=== PATIENT | male | born 1955 | race Caucasian/White ===

== ENCOUNTER 2017-01-15 05:11 | Day surgery (SDC) | payer MEDICARE, OTHER ==
[~2017-01-15] VITALS: Ht 182.9 cm; Wt 141.5 kg
[~2017-01-15 05:11] MED LIST: ALLEGRA-D1 TAB.SR1 PO; ASPIRIN EC81 M1 PO; BACTRIM DS TABL1 TAB PO; BAYER CHEWABLE81 MG PO; CALCI-CHEW1 TAB.CHEW PO; CELEXA40 MG PO; COUMADIN5 MG PO; COZAAR50 MG PO; DICLOFENAC SODI50 MG PO; ELIQUIS2.5 MG PO; FLAGYL500 MG PO; FLINTSTONE1 TAB.CHEW PO; GLUCOPHAGE1000 MG PO; GLUCOTROL 5 MG T5 MG PO; HCTZ25 MG PO; IMURAN50 MG PO; MORPHINE SULFAT30 MG PO; NEURONTIN 300300 MG PO; NORCO 10/325 TA1 TA1 PO; NORCO 7.5/325 T1 TA1 PO; NORVASC10 MG PO; ORAMORPH SR15 MG; OTEZLA PO; PERCOCET 10/3251 TA1; PERCOCET 10/3251 TA1 PO; PROZAC20 MG PO; TESTOSTERON200 MG/ML IM; TUMS500 MG PO; VENTOLIN HFA18 GM INH; VITAMIN D31000 UNIT PO; VITAMIN D5000 UNIT PO; VITAMIN E200 UNI1 PO; VITAMIN E200 UNI2 PO; ZANAFLEX4 MG PO
[2017-01-15 06:28] VITALS: BP 138/83; Ht 182.9 cm; Wt 141.5 kg
[2017-01-15 06:37] LABS: HEMATOCRIT 44.3 % (42.0-54.0); HEMOGLOBIN 14.5 g/dL (13.5-17.5); MCH 31.3 pg (26.0-34.0); MCHC 32.7 g/dL (31.0-37.0); MCV 95.7 fL (80.0-100.0); MEAN PLATELET VOLUME 9.5 fL (7.4-10.4); RBC 4.63 10x6/uL (4.20-6.10); RDW 13.6 % (11.5-14.5); WBC 3.8 10x3/uL (4.8-10.8)
[2017-01-15 06:46] LABS: ANION GAP 7.7 mmol/L (8-16); CALCIUM 8.9 mg/dL (8.5-10.1); CARBON DIOXIDE 32.1 mmol/L (21.0-32.0); CREATININE - SERUM 1.2 mg/dL (0.6-1.3); POTASSIUM - SERUM 3.8 mmol/L (3.5-5.1)
[2017-01-15] MEDS ORDERED: DILAUDID4 MG PO (10:03)
--- NOTE | 2017-01-15 11:04 | NUR ---
IV DC WITH CATHER TIP INTACT
--- NOTE | 2017-01-16 11:39 | OP ---
PATIENT NAME: VENANCIO MARTÍNEZ MEDICAL RECORD: [id number] :53 LOCATION:D.OPS ADMISSION DATE: SURGEON: STEPHANIE BANEGAS MD DATE OF OPERATION: 01/15/2017 Orthopedic Surgery Operative Note PREOPERATIVE DIAGNOSES: Painful Jose Manuel deformity of the right foot, also painful plantar osteophyte. POSTOPERATIVE DIAGNOSES: Painful Jose Manuel deformity of the right foot, also painful plantar osteophyte. PROCEDURES: 1. Jose Manuel resection with Achilles tendon repair. 2. Resection of plantar bone spur with plantar fascial release. SURGEON: Stephanie Banegas MD. ANESTHESIA: General. INTRAOPERATIVE COMPLICATIONS: None. SUMMARY OF PATHOLOGIC FINDINGS: The patient had a near full thickness Achilles tendon tear with severe bursitis in the retrocalcaneal space with a part of a fibrotic tendinotic piece still attached to the retrocalcaneal area, but not attached to the Achilles tendon. Furthermore, the patient had a large plantar bone spur that was resected along with plantar fascia release. OPERATIVE SUMMARY IN DETAIL: After obtaining the appropriate preoperative orthopedic surgery consent as well as anesthetic consultation, evaluation and clearance, the patient was brought to the operating room and placed on the operating table in supine position. After general laryngeal mask was administered, tourniquet was placed about the proximal aspect of the right lower extremity. The patient was flipped from a prone position. All pressure points were well padded. Tourniquet was placed about the proximal aspect of the right lower extremity. The right lower extremity was then prepped and draped in routine sterile fashion. The leg was elevated and exsanguinated, tourniquet inflated to 350 mmHg. Routine midline incision was taken down, the residual Achilles tendon was released showing the pathology both of the tendon as well as the retroperitoneal space. Jose Manuel material was dissected out of the Achilles tendon. A combination of a TPS saw blade as well as a rongeur utilized to debride, denude and decorticate the retrocalcaneal area and take down all bone spurs. At this point, the Achilles tendon was reattached using the Arthrex Achilles SpeedBridge kit. This resulted in excellent anatomic fixation. This wound was very gently closed with 2-0 Vicryl followed by 4-0 Prolene in running fashion and then an incision was made on the medial side of the foot along the plantar and medial skin junction. Dissection was carried down to the level of the plantar fascia as well as the plantar exostosis. This was excised with a combination of a sagittal saw and an osteotome. Having completed this, the wound was copiously irrigated and then closed with 2-0 Vicryl and 4-0 Prolene in running fashion. Sterile dressings were applied. Tourniquet was deflated and a posterior L&U splint was applied. The patient was awakened and taken to recovery in stable condition. All final needle and sponge counts were correct. OPERATIVE REPORT [id number] VENANCIO MARTÍNEZ TRANSINT:[id number] Voice Confirmation ID: [id number] DOCUMENT ID: [id number] BASSAM MERAZ, STEPHANIE BLANCA at 1139 CC: [id number] DICTATION DATE: 01/15/17 1331 INDUSTRIAL REAL ESTATE AGENT: 01/15/17 2332 [facility] 01/15/17 [facility] [address] [place] [address]
== END 2017-01-15 11:30 | disposition home or self-care (01) ==
LOC: D.OPS 05:11 → D.PAN 08:00 → D.OPS 08:30
PROVIDERS: Anesthesiology
DX: M89.8X7 Other specified disorders of bone, ankle and foot (principal); Z01.812 Encounter for preprocedural laboratory examination

== ENCOUNTER → 2017-11-27 07:52 | Outpatient (CLI) | payer MEDICARE, OTHER ==
[2017-01-15 06:28] VITALS: BMI 42.4
[~2017-11-27 07:52] MED LIST changes: +DILAUDID4 MG PO
[2017-11-27 08:32] LABS: BASOPHILS 0.3 % (0-2); EOSINOPHILS 2.9 % (0-7); HEMATOCRIT 49.1 % (42.0-54.0); HEMOGLOBIN 16.5 g/dL (13.5-17.5); IMMATURE GRANULOCYTES 0.9 % (0-5); MCHC 33.6 g/dL (31.0-37.0); MCV 92.3 fL (80.0-100.0); MEAN PLATELET VOLUME 9.9 fL (7.4-10.4); NEUTROPHILS 53.9 % (40-80); PLATELET COUNT 241 10x3/uL (130-400); RBC 5.32 10x6/uL (4.20-6.10); RDW 12.7 % (11.5-14.5); WBC 7.6 10x3/uL (4.8-10.8)
[2017-11-27 09:35] LABS: ERYTHROCYTE SEDIMENTATION RATE 2 mm/hr (0-20)
== END | disposition home or self-care (01) ==
LOC: D.NM 07:52
PROVIDERS: Orthopaedic Surgery
DX: T84.84XA Pain due to internal orthopedic prosthetic devices, implants and grafts, initial encounter (principal)

== ENCOUNTER → 2018-04-28 17:14 | Outpatient (CLI) | payer MEDICARE, OTHER ==
[2017-01-15 06:28] VITALS: BMI 42.4
[~2018-04-28 17:14] MED LIST changes: +CETIRIZINE HCL5 MG PO; +FEXOFENADINE H180 MG PO; +MS CONTIN15 MG PO; +NORCO 10-325 TA1 TAB PO; -NORCO 7.5/325 T1 TA1 PO; +OMEPRAZOLE20 M1 PO; +OXYCODONE-APAP1 TAB PO; +Percocet-10 PO; +TALTZ IM; +TESTOSTERONE IM; +[UNRECOGNIZED DRUG - OTHER]; +[UNRECOGNIZED DRUG - OTHER] TD
== END | disposition home or self-care (01) ==
LOC: D.LABREF 17:14
DX: M17.11 Unilateral primary osteoarthritis, right knee (principal); Z11.8 Encounter for screening for other infectious and parasitic diseases

== ENCOUNTER 2018-05-26 10:00 | Inpatient (IN) | payer MEDICARE, OTHER ==
[~2018-05-26] VITALS: Ht 182.9 cm; Wt 140.5 kg
--- NOTE | ~2018-05-26 | OP ---
PATIENT NAME: VENANCIO MARTÍNEZ MEDICAL RECORD: [id number] :53 LOCATION:D.MS [id number] ADMISSION DATE:05/31/18 SURGEON: STEPHANIE BANEGAS MD DATE OF OPERATION: 05/31/2018 PREOPERATIVE DIAGNOSIS: Instability of the right knee, status post revision total knee arthroplasty. POSTOPERATIVE DIAGNOSIS: Instability of the right knee, status post revision total knee arthroplasty. PROCEDURE: Revision total knee arthroplasty (polyethylene component only). SURGEON: Stephanie Banegas MD ANESTHESIA: General. INTRAOPERATIVE COMPLICATIONS: None. SUMMARY OF PATHOLOGIC FINDINGS: Essentially, the patient had laxity in both flexion and extension. Unsure as to why the patient's knee got this loose; however, he had this revision done several years ago and recently presented with laxity in both flexion and extension. It is of note that the patient's femoral and tibial components were in excellent condition. OPERATIVE SUMMARY IN DETAIL: After obtaining the appropriate preoperative orthopedic surgery consent as well as anesthetic consultation, evaluation, and clearance, the patient was brought to the operative room and placed on the operating table in supine position. After general laryngeal mask airway was administered, tourniquet was placed on the proximal aspect of the right lower extremity. Right lower extremity was then prepped and draped in routine sterile fashion. The leg was elevated and exsanguinated, tourniquet was inflated to 350 mmHg. Midline incision was made over the previous midline incision, taken down for paramedian arthrotomy. Gentle eversion of the patella was then followed by subluxing the tibia anteriorly. The polyethylene was taken out along with the post. Trials were then undertaken and the 22-mm tibial trial implant rendered the patient's knee most stable in both planes. Having completed this, irrigation of the knee was then followed by reimplantation of the polyethylene post tibial component. This was then snapped into place. The knee was taken through range of motion and found to be stable in all planes. Again, the wound was irrigated and closed with #2 Ethibond, followed #1 Vicryl, 2-0 Vicryl, and skin renay. Sterile dressings were applied. The patient was awakened and taken to recovery room in stable condition. All final needle and sponge counts were correct. TRANSINT:[id number] Voice Confirmation ID: [id number] DOCUMENT ID: [id number] OPERATIVE REPORT [id number] VENANCIO MARTÍNEZ MD, STEPHANIE BLANCA at 0905 CC: [id number] DICTATION DATE: 06/04/18835 LOKIE DRIVER: 06/04/18 0856 [facility] [place] 06/02/18 [place] [id number] [place] [id number]
[~2018-05-26 10:00] MED LIST changes: -CETIRIZINE HCL5 MG PO; -FEXOFENADINE H180 MG PO; -MS CONTIN15 MG PO; -OMEPRAZOLE20 M1 PO; -OXYCODONE-APAP1 TAB PO; -Percocet-10 PO; -TALTZ IM; -TESTOSTERONE IM; -[UNRECOGNIZED DRUG - OTHER]; -[UNRECOGNIZED DRUG - OTHER] TD
[2018-05-26] MEDS ORDERED: CETIRIZINE HCL5 MG PO (11:29)
[2018-05-26] MEDS ORDERED: OMEPRAZOLE20 M1 PO (11:32)
[2018-05-26] MEDS ORDERED: FEXOFENADINE H180 MG PO (11:32)
[2018-05-26] MEDS ORDERED: [UNRECOGNIZED DRUG - OTHER] TD (11:34)
[2018-05-26] MEDS ORDERED: TALTZ IM (11:35)
[2018-05-26] MEDS ORDERED: [UNRECOGNIZED DRUG - OTHER] (11:36)
[2018-05-26 11:37] LABS: BASOPHILS 0.4 % (0-2); EOSINOPHILS 3.1 % (0-7); HEMATOCRIT 49.7 % (42.0-54.0); IMMATURE GRANULOCYTES 0.7 % (0-5); LYMPHOCYTES 32.3 % (15-50); MCH 31.5 pg (26.0-34.0); MCHC 34.2 g/dL (31.0-37.0); MCV 92.2 fL (80.0-100.0); MEAN PLATELET VOLUME 9.9 fL (7.4-10.4); MONOCYTES 7.9 % (2-11); NEUTROPHILS 55.6 % (40-80); PLATELET COUNT 282 10x3/uL (130-400); RBC 5.39 10x6/uL (4.20-6.10); RDW 13.9 % (11.5-14.5); WBC 7.4 10x3/uL (4.8-10.8)
[2018-05-26] MEDS ORDERED: TESTOSTERONE IM (11:39)
[2018-05-26 11:51] LABS: APPEARANCE CLEAR (CLEAR); BILIRUBIN NEGATIVE (NEGATIVE); CALC OSMOLALITY 258 mosm/kg (275-300); CARBON DIOXIDE 33.9 mmol/L (21.0-32.0); CHLORIDE - SERUM 95 mmol/L (98-107); COLOR YELLOW (YELLOW); GLUCOSE 150 mg/dL (74-106); GLUCOSE NEGATIVE (NEGATIVE); KETONE NEGATIVE (NEGATIVE); NITRITE NEGATIVE (NEGATIVE); POTASSIUM - SERUM 3.5 mmol/L (3.5-5.1); PROTEIN NEGATIVE (NEGATIVE); SODIUM 127 mmol/L (136-145); SPECIFIC GRAVITY 1.015 (1.005-1.020); UREA NITROGEN 15 mg/dL (7-18); UROBILINOGEN NORMAL (NORMAL); eGFR NON AFRICAN AMERICAN 80 mL/min (90-120)
[2018-05-26 11:59] LABS: APTT 28.8 SECONDS (22.8-39.4); INR 0.97 (0.85-1.17); PROTIME 12.5 SECONDS (11.6-15.0)
[2018-05-31] MEDS ORDERED: OXYCODONE-APAP1 TAB PO (09:16)
[2018-05-31 09:46] VITALS: BP 146/94; BMI 42.1
[2018-05-31 15:16] VITALS: BP 148/87
[2018-05-31 15:41] VITALS: BP 148/87; Ht 182.9 cm; Wt 140.5 kg
[2018-05-31 16:13] VITALS: BP 126/75
[2018-05-31 16:24] VITALS: BP 148/87
[2018-05-31 21:01] VITALS: BP 149/76
[2018-06-01 04:57] VITALS: BP 154/76
[2018-06-01 06:28] LABS: HEMATOCRIT 45.5 % (42.0-54.0); HEMOGLOBIN 15.2 g/dL (13.5-17.5); MCH 30.8 pg (26.0-34.0); MCHC 33.4 g/dL (31.0-37.0); MCV 92.1 fL (80.0-100.0); RBC 4.94 10x6/uL (4.20-6.10); RDW 13.8 % (11.5-14.5); WBC 8.3 10x3/uL (4.8-10.8)
[2018-06-01 08:05] VITALS: BP 139/86
[2018-06-01 13:21] VITALS: BP 179/91
[2018-06-01 15:53] VITALS: BP 142/54
[2018-06-01 21:10] VITALS: BP 151/92
[2018-06-02 05:00] VITALS: BP 107/67
[2018-06-02 05:09] LABS: HEMATOCRIT 41.9 % (42.0-54.0); HEMOGLOBIN 13.9 g/dL (13.5-17.5); MCH 30.6 pg (26.0-34.0); MCHC 33.2 g/dL (31.0-37.0); MCV 92.3 fL (80.0-100.0); MEAN PLATELET VOLUME 9.8 fL (7.4-10.4); RBC 4.54 10x6/uL (4.20-6.10); RDW 13.9 % (11.5-14.5); WBC 10.3 10x3/uL (4.8-10.8)
[2018-06-02 08:40] VITALS: BP 141/83
[2018-06-02] MEDS ORDERED: ELIQUIS2.5 MG PO (08:55)
[2018-06-02] MEDS ORDERED: Percocet-10 PO (08:55)
[2018-06-02] MEDS ORDERED: MS CONTIN15 MG PO (08:55)
[2018-06-02 11:40] VITALS: BP 152/89
== END 2018-06-02 13:20 | disposition home health service (06) | DRG 489 ==
LOC: D.MS 05-31 08:45 → D.SDCHOLD 05-31 08:45 → D.MS 05-31 15:06 → D.SDCHOLD 05-31 16:20 → D.MS 05-31 16:21
PROVIDERS: Orthopaedic Surgery
PROC: 0SUV09Z Supplement Right Knee Joint, Tibial Surface with Liner, Open Approach (ICD-10-PCS; 2018-05-31)
PROC: 0SPC09Z Removal of Liner from Right Knee Joint, Open Approach (ICD-10-PCS; principal; 2018-05-31 10:45)
DX: T84.89XA Other specified complication of internal orthopedic prosthetic devices, implants and grafts, initial encounter (principal); E11.9 Type 2 diabetes mellitus without complications; Z79.84 Long term (current) use of oral hypoglycemic drugs; I10 Essential (primary) hypertension; K75.9 Inflammatory liver disease, unspecified; Z87.891 Personal history of nicotine dependence

== ENCOUNTER 2018-07-02 08:10 | Day surgery (SDC) | payer MEDICARE, OTHER ==
[2018-07-02] VITALS (10 sets, daily range): BP systolic 110–161; BP diastolic 78–95; Ht 182.9 cm; Wt 141.8 kg
[~2018-07-02] VITALS: Ht 182.9 cm; Wt 141.8 kg
--- NOTE | ~2018-07-02 | MORECARE ---
CASE MANAGEMENT DISCHARGE SUMMARY PATIENT: VENANCIO MARTÍNEZ UNIT: [id number] ADM DATE: 07/02/18 AGE: 62 : 54 SEX: M ROOM/BED: D.2224 AUTHOR: CODIE SYLVESTER PHYSICIAN: REFERRING PHYSICIAN: STEPHANIE BANEGAS MD DATE OF SERVICE: 07/02/18 Discharge Plan Patient Name: VENANCIO MARTÍNEZ [facility] [facility] 1955 Planned Disposition: Anticipated Discharge Date: 07/03/18 Discharge Date: Expected LOS: 1 Initial Reviewer: [email or web address] Initial Review Date: 07/02/2018 Generated: 07/02/18 5:51 pm Comments DCP- Discharge Planning Updated by [email or web address]: Pauline Acuna on 07/02/18 3:[address] CM ATTEMPTED TO SET UP A [facility] HOME WOUND VAC ALL 3 NUMBERS TO [facility] WOULD NOT ANSWER [facility]ARDO LEVIN OR [facility]. SPOKE WITH DR BANEGAS HE WANTS A VAC VIA TO SEND THE PATIENT HOME AND WE WILL SET UP THE HOME WOUND VAC ON THURSDAY TO BE DELIVERED TO PATIENT'S HOME. KELBY WITH WOUND CARE CALLED [facility]S SHE IS GETTING ONE TO HAVE AT BEDSIDE FOR DR BANEGAS. CM WILL CONTINUE TO FOLLOW AND ASSIST WITH DC PLANNING Patient Name: VENANCIO MARTÍNEZ Page [phone] at 1651 All edits/amendments must be made on the electronic document DICTATION DATE: 07/02/181650 ANIMAL CARETAKER: DALE 07/02/181650 RPT#: [id number] DC DATE: STATUS: [facility] [address] [facility] [place] [address] END OF REPORT
--- NOTE | ~2018-07-02 | MORECARE ---
CASE MANAGEMENT DISCHARGE SUMMARY PATIENT: VENANCIO MARTÍNEZ UNIT: [id number] ADM DATE: 07/02/18 AGE: 62 : 54 SEX: M ROOM/BED: AUTHOR: HIGINIODOC PHYSICIAN: REFERRING PHYSICIAN: STEPHANIE BANEGAS MD DATE OF SERVICE: 07/05/18 Discharge Plan Patient Name: VENANCIO MARTÍNEZ Facility: [facility]:[place] : 1955 Planned Disposition: Anticipated Discharge Date: 07/03/18 Discharge Date: 07/03/2018 Expected LOS: 1 Initial Reviewer: [email or web address] Initial Review Date: 07/02/2018 Generated: 07/05/18 3:27 pm Comments DCP- Discharge Planning Updated by [id number]: Pauline Acuna on 07/05/18 1:[address] spoke with Lupe at [facility],. she will go see patient and updated her on the home vac. DCP- Discharge Planning Updated by [email or web address]: Pauline Acuna on 07/05/18 8:[address] FAXED HOME WOUND VAC ORDERS TO [facility] FOR WOUND VAC TO BE DELIVERED TO THE HOME DCP- Discharge Planning Updated by [email or web address]: Lenore Hale on 07/03/18 3:[address] TC TO [facility] IN [place] [phone]. SPOKE WITH SERVICE. ADVISED OF DISCHARGE TO HOME. TC TO [facility], WEEKEND RN DERMATOLOGY, AT [phone] ADVISED OF DISCHARGE. WILL FAX DISCHARGE SUMMARY ,DISCHARGE INSTRUCTIONS AND MED LIST TO [phone]. DCP- Discharge Planning Updated by [email or web address]: Gloria Arechiga on 07/02/18 4:[address] Patient Name: VENANCIO MARTÍNEZ Admission Status: Elective Accout number: [id number] Admission Date: 07-02-2018 : 1955 Admission Diagnosis: Attending: STEPHANIE BANEGAS Current LOS: 1 Anticipated DC Date: 07-03-2018 Planned Disposition: Primary Insurance: MEDICARE A & B Discharge Planning Comments: [facility] HAS [facility] ALREADY FOR PT AND WOUND CARE. [facility] ONLY DIFFERENCE WILL BE HE WILL HAVE THE WOUND VAC. [facility] IN [facility] PHONE NUMBER [phone], CALL THEM WHEN PATIENT DC'D. CM TO CALL LUPE ON HER PHONE AT [phone], SHE IS THE RN DERMATOLOGY FOR [facility] THIS WEEKEND. NO DOCUMENTS IN THE COMPUTER YET, WILL NEED TO FAX DOCUMENTS TO [facility] WHEN WE GET THEM. Plastic Molding Operator: Gloria Arechiga DCP- Discharge Planning Updated by [email or web address]: Pauline Acuna on 07/02/18 3:[address] CM ATTEMPTED TO SET UP A [facility] HOME WOUND VAC ALL 3 NUMBERS TO [facility] WOULD NOT ANSWER EVERARDO LEVIN OR [facility]. SPOKE WITH DR BANEGAS HE WANTS A VAC VIA TO SEND THE PATIENT HOME AND WE WILL SET UP THE HOME WOUND VAC ON THURSDAY TO BE DELIVERED TO PATIENT'S HOME. KELBY WITH WOUND CARE CALLED ANS SHE IS GETTING ONE TO HAVE AT BEDSIDE FOR DR BANEGAS. CM WILL CONTINUE TO FOLLOW AND ASSIST WITH DC PLANNING Last DP export: 07/05/18 8:16 Patient Name: VENANCIO MARTÍNEZ Page 11288 at 1427 All edits/amendments must be made on the electronic document DICTATION DATE: 07/05/181426 MANAGER STERILE PROCESSING: DALE 07/05/181426 RPT#: [id number] DC DATE:07/03/18 STATUS: [facility] [address] [place] [address] END OF REPORT
--- NOTE | ~2018-07-02 | MORECARE ---
CASE MANAGEMENT DISCHARGE SUMMARY PATIENT: VENANCIO MARTÍNEZ UNIT: [id number] ADM DATE: 07/02/18 AGE: 62 : 54 SEX: M ROOM/BED: AUTHOR: HIGINIO,DOC PHYSICIAN: REFERRING PHYSICIAN: STEPHANIE BANEGAS MD DATE OF SERVICE: 07/03/18 Discharge Plan Patient Name: VENANCIO MARTÍNEZ Facility: [facility]:[place] : 1955 Planned Disposition: Anticipated Discharge Date: 07/03/18 Discharge Date: 07/03/2018 Expected LOS: 1 Initial Reviewer: [email or web address] Initial Review Date: 07/02/2018 Generated: 07/03/18 5:38 pm Comments DCP- Discharge Planning Updated by [email or web address]: Lenore Hale on 07/03/18 3:[address] TC TO [facility] IN [place] [phone]. SPOKE WITH SERVICE. ADVISED OF DISCHARGE TO HOME. TC TO [facility], WEEKEND COPY MANAGER, AT [phone] ADVISED OF DISCHARGE. CM WILL FAX DISCHARGE SUMMARY ,DISCHARGE INSTRUCTIONS AND MED LIST TO [phone]. DCP- Discharge Planning Updated by [email or web address]: Gloria Arechiga on 07/02/18 4:[address] Patient Name: VENANCIO MARTÍNEZ Admission Status: Elective Accout number: [id number] Admission Date: 07-02-2018 : 1955 Admission Diagnosis: Attending: STEPHANIE BANEGAS Current LOS: 1 Anticipated DC Date: 07-03-2018 Planned Disposition: Primary Insurance: MEDICARE A & B Discharge Planning Comments: [facility] HAS [facility] ALREADY FOR PT AND WOUND CARE. [facility] ONLY DIFFERENCE WILL BE HE WILL HAVE THE WOUND VAC. [facility] IN [facility] PHONE NUMBER [phone], CALL THEM WHEN PATIENT DC'D. CM TO CALL [facility] ON HER PHONE AT [phone], SHE IS THE COPY MANAGER FOR [facility] THIS WEEKEND. NO DOCUMENTS IN THE COMPUTER YET, WILL NEED TO FAX DOCUMENTS TO [facility] WHEN WE GET THEM. Landscape Nurseryman: Gloria Arechiga DCP- Discharge Planning Updated by [email or web address]: Pauline Acuna on 07/02/18 3:[address] CM ATTEMPTED TO SET UP A I HOME WOUND VAC ALL 3 NUMBERS TO [facility] WOULD NOT ANSWER [facility]ER[facility] LEVIN OR [facility]. SPOKE WITH DR BANEGAS HE WANTS A VAC VIA TO SEND THE PATIENT HOME AND WE WILL SET UP THE HOME WOUND VAC ON THURSDAY TO BE DELIVERED TO PATIENT'S HOME. KELBY WITH WOUND CARE CALLED [facility] SHE IS GETTING ONE TO HAVE AT BEDSIDE FOR DR BANEGAS. CM WILL CONTINUE TO FOLLOW AND ASSIST WITH DC PLANNING Last DP export: 07/02/18 4:09 Patient Name: VENANCIO MARTÍNEZ Page [phone] at 1638 All edits/amendments must be made on the electronic document DICTATION DATE: 07/03/181636 WINDOW/DISTRIBUTION CLERK: DALE 07/03/181636 RPT#: [id number] DC DATE:07/03/18 STATUS: [facility] [address] [place] [address] END OF REPORT
--- NOTE | ~2018-07-02 | MORECARE ---
CASE MANAGEMENT DISCHARGE SUMMARY PATIENT: VENANCIO MARTÍNEZ UNIT: [id number] ADM DATE: 07/02/18 AGE: 62 : 54 SEX: M ROOM/BED: AUTHOR: HIGINIODOC PHYSICIAN: REFERRING PHYSICIAN: STEPHANIE BANEGAS MD DATE OF SERVICE: 07/05/18 Discharge Plan Patient Name: VENANCIO MARTÍNEZ Facility: [facility]:[place] : 1955 Planned Disposition: Anticipated Discharge Date: 07/03/18 Discharge Date: 07/03/2018 Expected LOS: 1 Initial Reviewer: [email or web address] Initial Review Date: 07/02/2018 Generated: 07/05/18 10:16 am Comments DCP- Discharge Planning Updated by [email or web address]: Pauline Acuna on 07/05/18 8:[address] FAXED HOME WOUND VAC ORDERS TO [facility] FOR WOUND VAC TO BE DELIVERED TO THE HOME DCP- Discharge Planning Updated by [email or web address]: Lenore Hale on 07/03/18 3:[address] TC TO [facility] IN [place] [phone]. SPOKE WITH SERVICE. ADVISED OF DISCHARGE TO HOME. TC TO [facility], WEEKEND BLOOD TESTER [facility], AT [phone] ADVISED OF DISCHARGE. CM WILL FAX DISCHARGE SUMMARY ,DISCHARGE INSTRUCTIONS AND MED LIST TO [phone]. DCP- Discharge Planning Updated by [email or web address]: Gloria Arechiga on 07/02/18 4:[address] Patient Name: VENANCIO MARTÍNEZ Admission Status: Elective Accout number: [id number] Admission Date: 07-02-2018 : 1955 Admission Diagnosis: Attending: STEPHANIE BANEGAS Current LOS: 1 Anticipated DC Date: 07-03-2018 Planned Disposition: Primary Insurance: MEDICARE A & B Discharge Planning Comments: [facility] HAS [facility] ALREADY FOR PT AND WOUND CARE. [facility] ONLY DIFFERENCE WILL BE HE WILL HAVE THE WOUND VAC. [facility] IN [facility] PHONE NUMBER [phone], CALL THEM WHEN PATIENT DC'D. CM TO CALL [facility] ON HER PHONE AT [phone], SHE IS THE BLOOD TESTER [facility] FOR [facility] THIS WEEKEND. NO DOCUMENTS IN THE COMPUTER YET, WILL NEED TO FAX DOCUMENTS TO [facility] WHEN WE GET THEM. Rn Icu: Gloriarichi Arechiga DCP- Discharge Planning Updated by [email or web address]: Pauline Acuna on 07/02/18 3:[address] CM ATTEMPTED TO SET UP A [facility] HOME WOUND VAC ALL 3 NUMBERS TO [facility] WOULD NOT ANSWER EVERARDO LEVIN OR [facility]IR[facility]. SPOKE WITH DR BANEGAS HE WANTS A VAC VIA TO SEND THE PATIENT HOME AND WE WILL SET UP THE HOME WOUND VAC ON THURSDAY TO BE DELIVERED TO PATIENT'S HOME. KELBY WITH WOUND CARE CALLED ANS SHE IS GETTING ONE TO HAVE AT BEDSIDE FOR DR BANEGAS. CM WILL CONTINUE TO FOLLOW AND ASSIST WITH DC PLANNING External Providers External Provider: [facility] [employer] Next Contact Date: Service Request Date: Service Type: Resolution: Reviewer: Comments: Last DP export: 07/03/18 3:38 Patient Name: VENANCIO MARTÍNEZ Page [phone] at 0916 All edits/amendments must be made on the electronic document DICTATION DATE: 07/05/18915 OPTICAL GOODS DRILL OPERATOR: DALE 07/05/18915 RPT#: [id number] DC DATE:07/03/18 STATUS: [facility] [address] [place] [address] END OF REPORT
--- NOTE | ~2018-07-02 | OP ---
PATIENT NAME: VENANCIO MARTÍNEZ MEDICAL RECORD: [id number] :53 LOCATION:D.OPS ADMISSION DATE: SURGEON: STEPHANIE BANEGAS MD DATE OF OPERATION: 07/02/2018 PREOPERATIVE DIAGNOSIS: Infected surgical incision site with severe cellulitis of the right knee. POSTOPERATIVE DIAGNOSIS: Infected surgical incision site with severe cellulitis of the right knee. PROCEDURES: 1. Excisional debridement of skin, subcutaneous tissue, portions of fat, fascia. 2. Intraoperative knee aspirate. 3. Placement of suction wound VAC. SURGEON: Stephanie Banegas MD ANESTHESIA: General. INTRAOPERATIVE COMPLICATIONS: None. SUMMARY OF PATHOLOGIC FINDINGS: Fortunately for Mr. Martínez, I did not see any violation of the paramedian arthrotomy. Intraoperative synovial aspirate was sent for studies, however, it appeared to be normal and in fact it was found to Gram stain negative intraoperatively. I decided not to cut the paramedian arthrotomy open given these findings and the fact that his paramedian arthrotomy seemed to be sealed and the infection seemed to be refined to the prepatellar space. OPERATIVE SUMMARY IN DETAIL: After obtaining the appropriate preoperative orthopedic surgery consent as well as anesthetic consultation, evaluation and clearance, the patient was brought to the operating room and placed on the operating table in supine position. After adequate general laryngeal mask airway was administered, tourniquet was placed about the proximal aspect of the right lower extremity. Right lower extremity was then prepped and draped in routine sterile fashion. The tourniquet was not inflated. Attempts were made to just opening the small areas; however, after I found that this seemed to be undermining infectious-appearing hematoma, the entire incision was opened, and at this point, a combination of curettage and rongeurs were utilized to remove all nonviable-appearing tissue. Pulsatile lavage irrigation was then followed by drying of the tissue; however, prior to this, an 18-gauge needle was placed intraarticularly and approximately 90 cc of clear appearing synovial fluid were sent to the lab. Again note, this was done prior to any manipulation of the soft tissues anteriorly. Having completed the above, wound VAC was then placed with good seal set at 125 continuous medium suction. The patient was then awakened and taken to the recovery room in stable condition. All final needle and sponge counts were correct. TRANSINT:[id number] Voice Confirmation ID: [id number] DOCUMENT ID: [id number] OPERATIVE REPORT [id number] VENANCIO MARTÍNEZ MD, STEPHANIE BLANCA at 0759 CC: [id number] DICTATION DATE: 07/03/18 1038 BREAD PAN GREASER: 07/03/18 1342 [facility] SD[facility] 07/03/18 [place] [address] [place] [id number]
--- NOTE | ~2018-07-02 | MORECARE ---
CASE MANAGEMENT DISCHARGE SUMMARY PATIENT: VENANCIO MARTÍNEZ UNIT: [id number] ADM DATE: 07/02/18 AGE: 62 : 53 SEX: M ROOM/BED: AUTHOR: HIGINIODOC PHYSICIAN: REFERRING PHYSICIAN: STEPHNAIE BANEGAS MD DATE OF SERVICE: 07/12/18 Discharge Plan Patient Name: VENANCIO MARTÍNEZ Facility: [facility]:[place] : 1955 Planned Disposition: Anticipated Discharge Date: 07/03/18 Discharge Date: 07/03/2018 Expected LOS: 1 Initial Reviewer: [email or web address] Initial Review Date: 07/02/2018 Generated: 07/12/18 5:46 pm Comments DCP- Discharge Planning Updated by [email or web address]: Pauline Acuna on 07/05/18 1:[address] spoke with Lupe at [facility],. she will go see patient and updated her on the home vac. DCP- Discharge Planning Updated by [email or web address]: Pauline Acuna on 07/05/18 8:[address] FAXED HOME WOUND VAC ORDERS TO [facility] FOR WOUND VAC TO BE DELIVERED TO THE HOME DCP- Discharge Planning Updated by [email or web address]: Lenore Hale on 07/03/18 3:[address] TC TO [facility] IN [place] [phone]. SPOKE WITH SERVICE. ADVISED OF DISCHARGE TO HOME. TC TO [facility], WEEKEND AFFILIATE MANAGER, AT [phone] ADVISED OF DISCHARGE. WILL FAX DISCHARGE SUMMARY ,DISCHARGE INSTRUCTIONS AND MED LIST TO [phone]. DCP- Discharge Planning Updated by [email or web address]: Gloria Arechiga on 07/02/18 4:[address] Patient Name: VENANCIO MARTÍNEZ Admission Status: Elective Accout number: [id number] Admission Date: 07-02-2018 : 1955 Admission Diagnosis: Attending: STEPHANIE BANEGAS Current LOS: 1 Anticipated DC Date: 07-03-2018 Planned Disposition: Primary Insurance: MEDICARE A & B Discharge Planning Comments: [facility] HAS [facility] ALREADY FOR PT AND WOUND CARE. [facility] ONLY DIFFERENCE WILL BE HE WILL HAVE THE WOUND VAC. [facility] IN [facility] PHONE NUMBER [phone], CALL THEM WHEN PATIENT DC'D. CM TO CALL LUPE ON HER PHONE AT [phone], SHE IS THE AFFILIATE MANAGER FOR [facility] THIS WEEKEND. NO DOCUMENTS IN THE COMPUTER YET, WILL NEED TO FAX DOCUMENTS TO [facility] WHEN WE GET THEM. Legal Writing Professor: Gloria Arechiga DCP- Discharge Planning Updated by [id number]: Pauline Acuna on 07/02/18 3:[address] CM ATTEMPTED TO SET UP A [facility] HOME WOUND VAC ALL 3 NUMBERS TO [facility] WOULD NOT ANSWER EVERARDO LEVIN OR DESIRAE. SPOKE WITH DR BANEGAS HE WANTS A VAC VIA TO SEND THE PATIENT HOME AND WE WILL SET UP THE HOME WOUND VAC ON THURSDAY TO BE DELIVERED TO PATIENT'S HOME. KELBY WITH WOUND CARE CALLED ANS SHE IS GETTING ONE TO HAVE AT BEDSIDE FOR DR BANEGAS. CM WILL CONTINUE TO FOLLOW AND ASSIST WITH DC PLANNING Last DP export: 07/05/18 1:27 Patient Name: VENANCIO MARTÍNEZ Page [phone] at 1646 All edits/amendments must be made on the electronic document DICTATION DATE: 07/12/181644 ANHYDROUS AMMONIA PRODUCTION SUPERVISOR: DALE 07/12/181644 RPT#: [id number] DC DATE:07/03/18 STATUS: [facility] [address] [place] [address] END OF REPORT
--- NOTE | ~2018-07-02 | MORECARE ---
CASE MANAGEMENT DISCHARGE SUMMARY PATIENT: VENANCIO MARTÍNEZ UNIT: [id number] ADM DATE: 07/02/18 AGE: 62 : 53 SEX: M ROOM/BED: D.2224 AUTHOR: HIGINIO,DOC PHYSICIAN: REFERRING PHYSICIAN: STEPHANIE BANEGAS MD DATE OF SERVICE: 07/02/18 Discharge Plan Patient Name: VENANCIO MARTÍNEZ [facility] [facility] 1955 Planned Disposition: Anticipated Discharge Date: 07/03/18 Discharge Date: Expected LOS: 1 Initial Reviewer: [email or web address] Initial Review Date: 07/02/2018 Generated: 07/02/18 6:09 pm Comments DCP- Discharge Planning Updated by [email or web address]: Gloria Arechiga on 07/02/18 4:[address] Patient Name: VENANCIO MARTÍNEZ Admission Status: Elective Accout number: [id number] Admission Date: 07-02-2018 : 1955 Admission Diagnosis: Attending: STEPHANIE BANEGAS Current LOS: 1 Anticipated DC Date: 07-03-2018 Planned Disposition: Primary Insurance: MEDICARE A & B Discharge Planning Comments: [facility] HAS [facility] ALREADY FOR PT AND WOUND CARE. [facility] ONLY DIFFERENCE WILL BE HE WILL HAVE THE WOUND VAC. [facility] PHONE NUMBER [phone], CALL THEM WHEN PATIENT DC'D. CM TO CALL URIAHSusie ON HER PHONE AT [phone], SHE IS THE NURSING ASSOC FOR [facility] THIS WEEKEND. NO DOCUMENTS IN THE COMPUTER YET, WILL NEED TO FAX DOCUMENTS TO [facility] WHEN WE GET THEM. Benefit Authorizer: Gloria Arechiga DCP- Discharge Planning Updated by [email or web address]: Pauline Acuna on 07/02/18 3:[address] CM ATTEMPTED TO SET UP A [facility] HOME WOUND VAC ALL 3 NUMBERS TO [facility] WOULD NOT ANSWER EVERARDO LEVIN OR DESIRAE. SPOKE WITH DR BANEGAS HE WANTS A VAC VIA TO SEND THE PATIENT HOME AND WE WILL SET UP THE HOME WOUND VAC ON THURSDAY TO BE DELIVERED TO PATIENT'S HOME. KELBY WITH WOUND CARE CALLED [facility] SHE IS GETTING ONE TO HAVE AT BEDSIDE FOR DR BANEGAS. CM WILL CONTINUE TO FOLLOW AND ASSIST WITH DC PLANNING Last DP export: 07/02/18 3:51 Patient Name: VENANCIO MARTÍNEZ Page [id number] at 1709 All edits/amendments must be made on the electronic document DICTATION DATE: 07/02/181707 MANAGER MULTICULTURAL: DALE 07/02/181707 RPT#: [id number] DC DATE: STATUS: REG [facility] [address] [place] [address] END OF REPORT
[~2018-07-02 08:10] MED LIST changes: +CETIRIZINE HCL5 MG PO; +FEXOFENADINE H180 MG PO; +MS CONTIN15 MG PO; +OMEPRAZOLE20 M1 PO; +OXYCODONE-APAP1 TAB PO; +Percocet-10 PO; +SMZ/TMP DS TAB 800 PO; +TALTZ IM; +TESTOSTERONE IM; +ZYRTEC10 MG PO; +[UNRECOGNIZED DRUG - OTHER]; +[UNRECOGNIZED DRUG - OTHER] TD
[2018-07-02 08:25] LABS: HEMATOCRIT 43.3 % (42.0-54.0); HEMOGLOBIN 14.6 g/dL (13.5-17.5); MCH 30.7 pg (26.0-34.0); MCHC 33.7 g/dL (31.0-37.0); MEAN PLATELET VOLUME 9.3 fL (7.4-10.4); RBC 4.76 10x6/uL (4.20-6.10); RDW 13.5 % (11.5-14.5); WBC 7.4 10x3/uL (4.8-10.8)
[2018-07-02 08:33] LABS: ANION GAP 12.6 mmol/L (8-16); CARBON DIOXIDE 27.8 mmol/L (21.0-32.0); CREATININE - SERUM 1.2 mg/dL (0.6-1.3); POTASSIUM - SERUM 4.4 mmol/L (3.5-5.1)
[2018-07-02 08:41] LABS: APTT 28.9 SECONDS (22.8-39.4)
[2018-07-02 08:44] LABS: INR 0.97 (0.85-1.17); PROTIME 12.5 SECONDS (11.6-15.0)
[2018-07-02 14:00] LABS: PROTEIN - BODY FLUID 4.1 G/DL
[2018-07-02 14:26] LABS: EOS BF 0 %; MACROPHAGES BF 0 %; MESOTHELIALS BF 0 %; NEUT - BF 20 %
[2018-07-03 04:50] LABS: HEMOGLOBIN 13.6 g/dL (13.5-17.5); MCH 30.6 pg (26.0-34.0); MCHC 33.2 g/dL (31.0-37.0); MCV 92.3 fL (80.0-100.0); MEAN PLATELET VOLUME 9.6 fL (7.4-10.4); RBC 4.44 10x6/uL (4.20-6.10); RDW 13.5 % (11.5-14.5)
[2018-07-03 04:54] LABS: WBC 5.5 10x3/uL (4.8-10.8)
[2018-07-03 05:10] VITALS: BP 134/79
[2018-07-03 09:40] VITALS: BP 143/84
[2018-07-03] MEDS ORDERED: OXYCODONE-APAP1 TAB PO (09:57)
== END 2018-07-03 13:15 | disposition home or self-care (01) ==
LOC: D.OPS 08:10 → D.MS 08:10 → D.OPS 10:00 → D.MS 13:14 → D.OPS 07-03 13:15
PROVIDERS: Anesthesiology; Orthopaedic Surgery
DX: T81.41XA Infection following a procedure, superficial incisional surgical site, initial encounter (principal); L03.115 Cellulitis of right lower limb; Z01.812 Encounter for preprocedural laboratory examination

== ENCOUNTER → 2018-07-29 16:22 | Outpatient (CLI) | payer MEDICARE, OTHER ==
[2018-07-02 14:42] VITALS: BMI 42.4
[2018-07-29 16:50] LABS: BASOPHILS 0.4 % (0-2); EOSINOPHILS 2.6 % (0-7); HEMATOCRIT 46.9 % (42.0-54.0); HEMOGLOBIN 15.5 g/dL (13.5-17.5); IMMATURE GRANULOCYTES 0.4 % (0-5); LYMPHOCYTES 42.7 % (15-50); MCH 30.3 pg (26.0-34.0); MCV 91.8 fL (80.0-100.0); MONOCYTES 11.4 % (2-11); NEUTROPHILS 42.5 % (40-80); RBC 5.11 10x6/uL (4.20-6.10); RDW 13.7 % (11.5-14.5); WBC 5.4 10x3/uL (4.8-10.8)
[2018-07-29 16:55] LABS: PLATELET COUNT 342 10x3/uL (130-400)
[2018-07-29 17:21] LABS: ANION GAP 12.6 mmol/L (8-16); C-REACTIVE PROTEIN 0.7 mg/dL (0.0-0.9); CALCIUM 9.7 mg/dL (8.5-10.1); CARBON DIOXIDE 30.5 mmol/L (21.0-32.0); CREATININE - SERUM 1.1 mg/dL (0.6-1.3); POTASSIUM - SERUM 4.1 mmol/L (3.5-5.1)
[2018-07-29 17:53] LABS: ERYTHROCYTE SEDIMENTATION RATE 10 mm/hr (0-20)
== END | disposition home or self-care (01) ==
LOC: D.LABREF 16:22
PROVIDERS: Orthopaedic Surgery
DX: M25.561 Pain in right knee (principal); Z00.00 Encounter for general adult medical examination without abnormal findings; E11.9 Type 2 diabetes mellitus without complications; E29.1 Testicular hypofunction

== ENCOUNTER → 2019-02-01 14:07 | Outpatient (CLI) | payer MEDICARE, OTHER ==
[2018-07-02 14:42] VITALS: BMI 42.4
== END | disposition home or self-care (01) ==
LOC: D.US 14:00
PROVIDERS: ATTEND Surgery
DX: I87.2 Venous insufficiency (chronic) (peripheral) (principal)

== ENCOUNTER 2019-05-09 09:19 | Day surgery (SDC) | payer MEDICARE, OTHER ==
[~2019-05-09] VITALS: Ht 182.9 cm; Wt 147.4 kg
[~2019-05-09 09:19] MED LIST changes: +PENNSAID; -[UNRECOGNIZED DRUG - OTHER]
[2019-05-09 09:36] LABS: HEMATOCRIT 43.9 % (42.0-54.0); HEMOGLOBIN 15.3 g/dL (13.5-17.5); MCH 30.8 pg (26.0-34.0); MCHC 34.9 g/dL (31.0-37.0); MCV 88.3 fL (80.0-100.0); MEAN PLATELET VOLUME 9.8 fL (7.4-10.4); RBC 4.97 10x6/uL (4.20-6.10); RDW 14.5 % (11.5-14.5); WBC 5.3 10x3/uL (4.8-10.8)
[2019-05-09 09:51] LABS: ANION GAP 8.9 mmol/L (8-16); CALCIUM 9.4 mg/dL (8.5-10.1); CARBON DIOXIDE 32.9 mmol/L (21.0-32.0); CREATININE - SERUM 1.1 mg/dL (0.6-1.3); POTASSIUM - SERUM 3.8 mmol/L (3.5-5.1)
[2019-05-09] MEDS ORDERED: FLOMAX0.4 MG PO (11:06)
[2019-05-09 11:21] VITALS: BP 144/79; Ht 182.9 cm; Wt 147.4 kg
[2019-05-09] MEDS ORDERED: HYDROCODON-ACE1 EAC7 PO (15:29)
--- NOTE | 2019-05-09 18:01 | NUR ---
1720 IV REMOVED AND PRESSURE HELD 1735 PT VOIDED A LOT 1745 DRESSING REINFORCED X2 ON ABD SMALL AMT ON GOWN
== END 2019-05-09 17:45 | disposition home or self-care (01) ==
LOC: D.OPS 09:19 → D.PAN 11:00 → D.OPS 12:00
PROVIDERS: Anesthesiology; ATTEND Surgery
DX: E66.01 Morbid (severe) obesity due to excess calories (principal); R13.10 Dysphagia, unspecified; K21.9 Gastro-esophageal reflux disease without esophagitis; Z98.84 Bariatric surgery status; K42.0 Umbilical hernia with obstruction, without gangrene; Z01.812 Encounter for preprocedural laboratory examination

== ENCOUNTER → 2019-05-17 13:14 | Outpatient (CLI) | payer MEDICARE, OTHER ==
[~2019-05-17] VITALS: Ht 182.9 cm; Wt 147.4 kg
[~2019-05-17 13:14] MED LIST changes: +FLOMAX0.4 MG PO; +HYDROCODON-ACE1 EAC7 PO; +PAROXETINE HCL10 MG PO; +PIOGLITAZONE15 MG PO
[2019-05-17 15:17] VITALS: Ht 182.9 cm; Wt 147.4 kg
== END | disposition home or self-care (01) ==
LOC: D.FANS 13:00
PROVIDERS: ATTEND Surgery
DX: E66.01 Morbid (severe) obesity due to excess calories (principal); E11.9 Type 2 diabetes mellitus without complications

== ENCOUNTER 2019-05-27 06:47 | Day surgery (SDC) | payer MEDICARE, OTHER ==
[~2019-05-27] VITALS: Ht 182.9 cm; Wt 145.1 kg
[~2019-05-27 06:47] MED LIST changes: -PAROXETINE HCL10 MG PO; -PIOGLITAZONE15 MG PO
[2019-05-27 07:13] LABS: HEMATOCRIT 41.9 % (42.0-54.0); HEMOGLOBIN 14.1 g/dL (13.5-17.5); MCH 29.6 pg (26.0-34.0); MCHC 33.7 g/dL (31.0-37.0); MCV 87.8 fL (80.0-100.0); MEAN PLATELET VOLUME 9.5 fL (7.4-10.4); RBC 4.77 10x6/uL (4.20-6.10); RDW 13.7 % (11.5-14.5); WBC 5.5 10x3/uL (4.8-10.8)
[2019-05-27 07:14] LABS: CALC OSMOLALITY 279 mosm/kg (275-300); CARBON DIOXIDE 34.1 mmol/L (21.0-32.0); CHLORIDE - SERUM 100 mmol/L (98-107); GLUCOSE 181 mg/dL (74-106); POTASSIUM - SERUM 3.5 mmol/L (3.5-5.1); SODIUM 137 mmol/L (136-145); UREA NITROGEN 16 mg/dL (7-18); eGFR NON AFRICAN AMERICAN 80 mL/min (90-120)
[2019-05-27] MEDS ORDERED: PIOGLITAZONE15 MG PO (08:01)
[2019-05-27] MEDS ORDERED: PAROXETINE HCL10 MG PO (08:03)
[2019-05-27 08:10] VITALS: BP 149/88; Ht 182.9 cm; Wt 145.1 kg
--- NOTE | 2019-05-27 13:21 | NUR ---
PATIENT ARRIVED VIA GURNEY, PATIENT ALERT AND ORIENTEDX4. MV
--- NOTE | 2019-05-27 13:24 | NUR ---
PATIENT HAS A FULL LIQUID TRAY AND IS TOLERATING IT WITH NO N/V. MV
--- NOTE | 2019-05-27 14:25 | NUR ---
PATIENT DOES NOT WANT THE PRESCRIPTION FOR NORCO 5. THIS WILL BE SHREDDED. PATIENT IS ON A PAIN MANAGMENT CONTRACT. MV
== END 2019-05-27 15:00 | disposition home or self-care (01) ==
LOC: D.OPS 06:47
PROVIDERS: Anesthesiology; ATTEND Surgery
DX: I87.2 Venous insufficiency (chronic) (peripheral) (principal); I83.11 Varicose veins of right lower extremity with inflammation; I83.12 Varicose veins of left lower extremity with inflammation

== ENCOUNTER 2019-08-03 05:26 | Day surgery (SDC) | payer MEDICARE, OTHER ==
[~2019-08-03] VITALS: Ht 182.9 cm; Wt 145.5 kg
[~2019-08-03 05:26] MED LIST changes: +PAROXETINE HCL10 MG PO; +PIOGLITAZONE15 MG PO
[2019-08-03 05:49] LABS: HEMATOCRIT 43.2 % (42.0-54.0); HEMOGLOBIN 13.8 g/dL (13.5-17.5); MCH 29.2 pg (26.0-34.0); MCHC 31.9 g/dL (31.0-37.0); MCV 91.3 fL (80.0-100.0); MEAN PLATELET VOLUME 9.5 fL (7.4-10.4); RBC 4.73 10x6/uL (4.20-6.10); RDW 13.2 % (11.5-14.5); WBC 5.3 10x3/uL (4.8-10.8)
[2019-08-03 06:02] LABS: ANION GAP 8.9 mmol/L (8-16); CALCIUM 8.8 mg/dL (8.5-10.1); CREATININE - SERUM 1.1 mg/dL (0.6-1.3); POTASSIUM - SERUM 3.9 mmol/L (3.5-5.1)
[2019-08-03] MEDS ORDERED: TUMERIC CURCUMIN (07:23)
[2019-08-03 07:32] VITALS: BP 127/80; Ht 182.9 cm; Wt 145.5 kg
== END 2019-08-03 09:00 | disposition home or self-care (01) ==
LOC: D.OPS 05:26
PROVIDERS: Anesthesiology; ATTEND Surgery
DX: E66.01 Morbid (severe) obesity due to excess calories (principal); Z68.41 Body mass index [BMI] 40.0-44.9, adult; K21.9 Gastro-esophageal reflux disease without esophagitis; E11.9 Type 2 diabetes mellitus without complications; I10 Essential (primary) hypertension; J45.909 Unspecified asthma, uncomplicated; I87.2 Venous insufficiency (chronic) (peripheral); G47.33 Obstructive sleep apnea (adult) (pediatric); M15.3 Secondary multiple arthritis; R13.10 Dysphagia, unspecified; Z98.84 Bariatric surgery status; Z96.651 Presence of right artificial knee joint; M25.561 Pain in right knee; S81.801D Unspecified open wound, right lower leg, subsequent encounter

== ENCOUNTER → 2019-08-04 08:28 | Outpatient (CLI) | payer MEDICARE, OTHER ==
[2019-08-03 07:32] VITALS: BMI 43.5
[~2019-08-04 08:28] MED LIST changes: +TUMERIC CURCUMIN
== END | disposition home or self-care (01) ==
LOC: D.OPS 08:28 → D.RAD 10:30
PROVIDERS: ATTEND Surgery
DX: E66.01 Morbid (severe) obesity due to excess calories (principal)

== ENCOUNTER → 2019-08-18 08:41 | Outpatient (CLI) | payer MEDICARE, OTHER ==
[2019-08-03 07:32] VITALS: BMI 43.5
== END | disposition home or self-care (01) ==
LOC: D.OPS 07-26 09:30 → D.RAD 07-26 10:30 → D.OPS 08-04 09:30 → D.ECHO 08:41 → D.OPS 09:00
PROVIDERS: ATTEND Internal Medicine Pulmonary Disease
DX: J45.909 Unspecified asthma, uncomplicated (principal); R06.09 Other forms of dyspnea

== ENCOUNTER 2019-08-29 05:43 | Day surgery (SDC) | payer MEDICARE, OTHER ==
[~2019-08-29] VITALS: Ht 182.9 cm; Wt 145.5 kg
[2019-08-29 06:02] LABS: HEMATOCRIT 44.7 % (42.0-54.0); HEMOGLOBIN 14.4 g/dL (13.5-17.5); MCHC 32.2 g/dL (31.0-37.0); MCV 90.1 fL (80.0-100.0); MEAN PLATELET VOLUME 9.4 fL (7.4-10.4); RBC 4.96 10x6/uL (4.20-6.10); RDW 14.3 % (11.5-14.5); WBC 5.4 10x3/uL (4.8-10.8)
[2019-08-29 06:44] LABS: CALCIUM 9.1 mg/dL (8.5-10.1); CARBON DIOXIDE 33.1 mmol/L (21.0-32.0); CREATININE - SERUM 1.1 mg/dL (0.6-1.3); POTASSIUM - SERUM 4.1 mmol/L (3.5-5.1)
[2019-08-29] MEDS ORDERED: NORVASC10 MG PO (08:15)
[2019-08-29] MEDS ORDERED: AMOXICILLIN500 M1 PO (08:16)
[2019-08-29 08:27] VITALS: BP 141/84; Ht 182.9 cm; Wt 145.5 kg
[2019-08-29] MEDS ORDERED: DIFLUCAN100 MG PO (10:13)
--- NOTE | 2019-08-29 11:54 | NUR ---
1145 IV REMOVED AND INSTRUCTIONS GIVEN. BRACE ON KNEE AND DRESSING CDI.
--- NOTE | 2019-08-31 10:08 | OP ---
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 PROCEDURES: 1. Excision of chronic nonhealing wound to include skin, subcutaneous tissue, portions of fascia with extensive excisional debridement. 2. Application of allograft skin graft - Restrata; wound dimensions 10 x 3 x 0.5 cm. 3. Application of PRP. SURGEON: Stephanie Banegas MD ANESTHESIA: General with laryngeal mask airway. INTRAOPERATIVE COMPLICATIONS: None. SUMMARY OF PATHOLOGIC FINDINGS: Consistent with preoperative diagnosis, the patient had a long chronic nonhealing skin wound that had very roughened edges. Cultures have been negative to date. Today, the skin was sent for both pathology as well as tissue culture to include AFB and fungus. OPERATIVE SUMMARY IN DETAIL: After obtaining the appropriate preoperative orthopedic surgery consent as well as anesthetic consultation, evaluation and brought to the operating room and placed in supine position. After adequate general laryngeal mask airway was administered, timeout was taken and agreed upon by all. The tourniquet was taken and placed about the proximal aspect of the right lower extremity. Right lower extremity was then prepped and draped in routine sterile fashion. The leg was elevated and exsanguinated. Tourniquet was inflated to 350 mmHg. Wide bloc excision was taken around the skin margins that were excised in the subcutaneous and subcutaneous layer half portions of which were sent for tissue culture as described above, portions of which were sent for pathology as described above. Combination of scalpel, rongeur, and curettage were utilized to clean all nonviable-appearing tissue. This was then copiously irrigated and scraped again. Having completed this, a portion of the PRP was injected in and around the wound and then the wound bed itself. Restrata 5 x 5 was meshed and soaked in PRP for approximately 10 minutes. This was then cut in half and applied to the wound with renay holding around it. Residual PRP that was left was placed onto the wound bed again, this was then covered with nonadherent adaptive, followed by pressure dressing 4 x 4s and an Duy bandage. Tourniquet was deflated. The patient was awakened and taken to the recovery room in stable condition. All final needle and sponge counts were correct. OPERATIVE REPORT [id number] VENANCIO MARTÍNEZ TRANSINT:[id number] Voice Confirmation ID: [id number] DOCUMENT ID: [id number] STEPHANIE BANEGAS MD at 1008 CC: [id number] DICTATION DATE: 08/29/19 1018 AGRICULTURE WORKER: 08/29/192028 [facility] 08/29/19 [address] [place] [address]
[2019-09-11 11:08] LABS: FUNGAL - ASP FLAVUS Negative (Neg:<1:1); FUNGAL - ASP NIGER Negative (Neg:<1:1); FUNGAL - ASPER FUMIGATUS Negative (Neg:<1:1)
[2019-09-12 09:08] LABS: ALPHA FETOPROTEIN -(TUMOR MRK) 2.9 ng/mL (0.0-8.3)
== END 2019-08-29 11:56 | disposition home or self-care (01) ==
LOC: D.OPS 05:43 → D.PAN 08:15 → D.OPS 11:56
PROVIDERS: Anesthesiology; ATTEND Orthopaedic Surgery
DX: S81.801D Unspecified open wound, right lower leg, subsequent encounter (principal); E11.9 Type 2 diabetes mellitus without complications; I10 Essential (primary) hypertension; J45.909 Unspecified asthma, uncomplicated; E66.01 Morbid (severe) obesity due to excess calories; Z68.41 Body mass index [BMI] 40.0-44.9, adult; Z96.651 Presence of right artificial knee joint
CPT/HCPCS: 11043; G0460

== ENCOUNTER 2019-09-06 11:05 | Inpatient (IN) | payer MEDICARE, OTHER ==
[~2019-09-06] VITALS: Ht 182.9 cm; Wt 148.2 kg
[~2019-09-06 11:05] MED LIST changes: +AMOXICILLIN500 M1 PO; +DIFLUCAN100 MG PO
[2019-09-09 12:36] LABS: ANION GAP 9.9 mmol/L (8-16); CALCIUM 9.3 mg/dL (8.5-10.1); CARBON DIOXIDE 33.3 mmol/L (21.0-32.0); CREATININE - SERUM 1.1 mg/dL (0.6-1.3); POTASSIUM - SERUM 4.2 mmol/L (3.5-5.1)
[2019-09-09 12:38] LABS: HEMATOCRIT 41.1 % (42.0-54.0); HEMOGLOBIN 13.4 g/dL (13.5-17.5); MCHC 32.6 g/dL (31.0-37.0); MEAN PLATELET VOLUME 9.4 fL (7.4-10.4); RBC 4.62 10x6/uL (4.20-6.10); RDW 14.1 % (11.5-14.5)
[2019-09-12] VITALS (12 sets, daily range): BP systolic 120–147; BP diastolic 64–87; Ht 182.9 cm; Wt 148.2 kg
--- NOTE | 2019-09-12 12:23 | NUR ---
PATIENT ADMITTED TO ROOM 2231. ADMISSION COMPLETE. EDUCATION PROVIDED ON LIQUID INTAKE TO ONLY HAVE 30ML EVERY 30 MINUTES, NO STRAWS, AND NO CARBONATION. MED CUP AND CUP OF WATER IN ROOM. AND PATIENT VERBALIZED UNDERSTANDING. AUTOMATION CONTROLS ENGINEER SET UP AND EDUCATION PROVIDED. PATIENT AND DENY NEEDS. BED ALARM ON. CALL RODRIGUEZ AND PERSONAL ITEMS IN REACH. WILL CONTINUE TO MONITOR.
--- NOTE | 2019-09-12 14:04 | NUR ---
PATIENT'S VITALS REMAIN STABLE. FOLLOWING PROTOCOL OF 3OCC Q 30MIN. WILL CONTINUE TO MONITOR.
--- NOTE | 2019-09-12 16:19 | NUR ---
POST OP VITALS REMAIN STABLE. 3OML LIQUID GIVEN. DENIES FURTHER REQUESTS. WILL CONTINUE TO MONITOR.
--- NOTE | 2019-09-12 19:27 | NUR ---
IN BED WITH FAMILY AT BEDSIDE. TELEVISION ON, ABLE TO VOICE ALL NEEDS. DENIES PAIN AT THIS TIME. IV TO RIGHT HAND INFUSING VIA ORDERS. FINANCIAL PLANNING ADVISER IS ACTIVE AND EFFECTIVE. NO S/S OF ANY ACUTE DISTRESS. WILL NOTE ANY CHANGE.
[2019-09-13 00:30] VITALS: BP 131/72
--- NOTE | 2019-09-13 01:51 | NUR ---
I have reviewed this patient and I concur with the Shift Assessment completed by the Licensed Practical Nurse today this shift.
[2019-09-13 05:25] VITALS: BP 137/77
[2019-09-13 05:32] LABS: BASOPHILS 0.1 % (0-2); EOSINOPHILS 0.1 % (0-7); HEMATOCRIT 43.6 % (42.0-54.0); HEMOGLOBIN 14.2 g/dL (13.5-17.5); IMMATURE GRANULOCYTES 0.6 % (0-5); LYMPHOCYTES 14.2 % (15-50); MCH 29.3 pg (26.0-34.0); MCHC 32.6 g/dL (31.0-37.0); MCV 89.9 fL (80.0-100.0); MEAN PLATELET VOLUME 9.5 fL (7.4-10.4); MONOCYTES 7.4 % (2-11); NEUTROPHILS 77.6 % (40-80); RBC 4.85 10x6/uL (4.20-6.10); RDW 14.5 % (11.5-14.5); WBC 10.2 10x3/uL (4.8-10.8)
[2019-09-13 05:35] LABS: ALBUMIN 3.3 g/dL (3.4-5.0); ANION GAP 13.4 mmol/L (8-16); BILIRUBIN - TOTAL 0.64 mg/dL (0.2-1.3); CALCIUM 8.8 mg/dL (8.5-10.1); CARBON DIOXIDE 27.8 mmol/L (21.0-32.0); CREATININE - SERUM 1.1 mg/dL (0.6-1.3); POTASSIUM - SERUM 4.2 mmol/L (3.5-5.1); PROTEIN - SERUM 7.5 g/dL (6.4-8.2)
[2019-09-13 06:52] LABS: PLATELET COUNT 366 10x3/uL (130-400)
--- NOTE | 2019-09-13 07:52 | NUR ---
ALERT AND ORIENTED. LUNGS CLEAR BILATERALLY. HEART SOUNDS S1 AND S2 HEARD IN ALL [place]. BOWEL SOUNDS ACTIVE X 4. LAP SITES X 5 C/D/I. SKIN OTHERWISE INTACT WITHOUT REDNESS. IV TO RIGHT HAND PATENT WITHOUT REDNESS. BED LOW. CALL RODRIGUEZ AND PERSONAL ITEMS IN REACH. WILL CONTINUE TO MONITOR.
[2019-09-13] MEDS ORDERED: PERCOCET 5-3251 TAB PO (09:21)
[2019-09-13] MEDS ORDERED: ZOFRAN ODT4 MG/UDTAB PO (09:21)
--- NOTE | 2019-09-13 10:08 | NUR ---
PATIENT'S RIGHT KNEE RE DRESSED AND WRAPPED FOR DISCHARGE PER REQUEST. INCISION SITE WITHOUT SIGNS OF INFECTION OR REDNESS. IV REMOVED FROM RIGHT HAND WITH TIP INTACT. WAITING FOR PAPERWORK TO FINISH. PATIENT TO BE GIVEN FLU SHOT PER REQUEST.
--- NOTE | 2019-09-13 11:01 | NUR ---
DISCHARGE EDUCATION PROVIDED BOTH WRITTEN AND VERBAL. VERBALIZED UNDERSTANDING. DENIES QUESTIONS. REFUSED WHEELCHAIR. STATES WANTS TO WALK. PATIENT DISCHARGED HOME WITH WITH ALL BELONGINGS.
--- NOTE | 2019-09-16 13:22 | MORECARE ---
CASE MANAGEMENT DISCHARGE SUMMARY PATIENT: VENANCIO MARTÍNEZ UNIT: [id number] ADM DATE: 09/12/19 AGE: 63 : 53 SEX: M ROOM/BED: D.2231 AUTHOR: CODIE SYLVESTER PHYSICIAN: REFERRING PHYSICIAN: STEPHANIE GARCIA MD DATE OF SERVICE: 09/16/19 Discharge Plan Patient Name: VENANCIO MARTÍNEZ [facility] [facility] 1955 Planned Disposition: Anticipated Discharge Date: Discharge Date: 09/13/2019 Expected LOS: 0 Initial Reviewer: [email or web address] Initial Review Date: 09/16/2019 Generated: 09/16/19 2:22 pm Patient Name: VENANCIO MARTÍNEZ Page [id number] at 1322 All edits/amendments must be made on the electronic document DICTATION DATE: 09/16/19 1322 FIRE PREVENTION BUREAU CAPTAIN: DALE 09/16/19 1322 RPT#: [id number] DC DATE:09/13/19 STATUS: DIS IN [facility] [address] [facility] [place] [address] END OF REPORT
== END 2019-09-13 11:03 | disposition home or self-care (01) | DRG 620 ==
LOC: D.SDCHOLD 09-12 05:45 → D.MS 09-12 11:22
PROVIDERS: Anesthesiology; ADMIT Surgery; ATTEND Surgery
PROC: 0DB64Z3 Excision of Stomach, Percutaneous Endoscopic Approach, Vertical (ICD-10-PCS; principal; 2019-09-12 08:00)
PROC: 0WQF4ZZ Repair Abdominal Wall, Percutaneous Endoscopic Approach (ICD-10-PCS; 2019-09-12 08:00)
DX: E66.01 Morbid (severe) obesity due to excess calories (principal); K42.0 Umbilical hernia with obstruction, without gangrene; Z68.41 Body mass index [BMI] 40.0-44.9, adult; K21.9 Gastro-esophageal reflux disease without esophagitis; G47.33 Obstructive sleep apnea (adult) (pediatric); M19.90 Unspecified osteoarthritis, unspecified site; I10 Essential (primary) hypertension; E11.9 Type 2 diabetes mellitus without complications; Z98.84 Bariatric surgery status